=== PATIENT | male | born 1940 | race Caucasian/White ===

== ENCOUNTER 2023-03-24 15:28 | Emergency (ER) | payer MEDICARE ==
[~2023-03-24] VITALS: Ht 180.3 cm; Wt 90.7 kg
[2023-03-24 15:57] LABS: BASOPHILS % (AUTO) 0.4 % (0.0-5.0); EOSINOPHILS % (AUTO) 1.4 % (0.0-8.0); HEMATOCRIT 35.7 % (42-54); LYMPHOCYTES % (AUTO) 15.5 % (21.0-51.0); MEAN CORPUSCULAR HEMOGLOBIN 31.8 pg (27.0-33.0); MEAN CORPUSCULAR HGB CONC 33.6 g/dL (32.0-36.0); MEAN CORPUSCULAR VOLUME 94.7 fL (79-99); MONOCYTES % (AUTO) 1.7 % (3.0-13.0); PLATELET COUNT (AUTO) 94 K/uL (130-400); RED BLOOD CELL COUNT(AUTO) 3.77 MIL/uL (4.50-6.20); WHITE BLOOD COUNT (AUTO) 5.2 K/uL (4.8-10.8)
[2023-03-24] MEDS ORDERED: FAMOTIDINE 20MG VIAL IV ONE (16:00)
[2023-03-24] MEDS ORDERED: METOCLOPRAMIDE 10 MG/2 ML VIAL IVP ONE (16:00)
[2023-03-24 16:10] LABS: CREATININE 1.4 mg/dL (0.5-1.5); POTASSIUM 4.2 mmol/L (3.5-5.1)
[2023-03-24 16:12] LABS: ALBUMIN 3.9 g/dL (3.5-5.0); TOTAL PROTEIN, SERUM 7.7 g/dL (6.0-8.3)
[2023-03-24] MEDS ORDERED: IOHEXOL-350 75 ML VIAL IV ONE (18:01)
[2023-03-24 19:05] LABS: APPEARANCE,URINE CLEAR (CLEAR); BILIRUBIN,URINE NEGATIVE (NEGATIVE); COLOR,URINE LIGHT-YELLOW (YELLOW); GLUCOSE, URINE (UA) NEGATIVE (NEGATIVE); KETONES,URINE NEGATIVE (NEGATIVE); LEUKOCYTE ESTERASE ,URINE NEGATIVE Leu/uL (NEGATIVE); NITRATE,URINE NEGATIVE (NEGATIVE); OCCULT BLOOD,URINE NEGATIVE (NEGATIVE); PROTEIN,URINE NEGATIVE (NEGATIVE); UROBILINOGEN,URINE 0.2 mg/dL (0.2-1.0)
[2023-03-24 19:08] LABS: RBC,URINE 0-1 /HPF (0-1); WBC,URINE 0-1 /HPF (0-1)
[2023-03-24 20:15] VITALS: BP 136/88
[2023-03-24] MEDS ORDERED: LACT10PA5 PO (20:41)
[2023-03-24] MEDS ORDERED: BISACODYL 10 MG SUPP.RECT RC ONE ×2 (20:48→21:00)
== END 2023-03-24 21:09 | disposition home or self-care (01) ==
LOC: EDH 15:28
DX: K59.00 Constipation, unspecified (principal); R10.32 Left lower quadrant pain; D69.6 Thrombocytopenia, unspecified; E87.1 Hypo-osmolality and hyponatremia; I10 Essential (primary) hypertension; Z95.1 Presence of aortocoronary bypass graft; Z95.810 Presence of automatic (implantable) cardiac defibrillator; Z88.0 Allergy status to penicillin; Z88.5 Allergy status to narcotic agent; Z88.8 Allergy status to other drugs, medicaments and biological substances
CPT/HCPCS: 99285; 74178; 96374; 71045; 96375; 84484; 80053; 83690; 85025; 81001; 36415; 93005; J3490; J2765; Q9967